=== PATIENT | male | born 1935 | race Caucasian/White ===

== ENCOUNTER 2018-07-17 07:52 | Outpatient (CLI) | payer OTHER ==
--- NOTE | 2018-07-17 09:30 | CT ---
Exam: CT abdomen pelvis with intravenous contrast. Comparison: CT chest abdomen pelvis performed 11/09/2007. Reason for exam: Right lower quadrant hernia. FINDINGS: No pleural effusion, or focal consolidation in the partially imaged lung bases. Operative changes are seen after implanted intracardiac device placement. The liver, spleen, gallbla dder, pancreas, and adrenal glands appear grossly unremarkable. Atherosclerotic disease is seen within the aorta and distal arterial vasculature. No focal small bowel dilatation or transition point. The appendix appears unremarkable. Hypodensities in the right renal parenchyma are statistically cysts. No hydronephrosis, hydroureter or nephrolithiasis in either kidney. There is circumferential bladder wall thickening with surrounding inflammatory change. Large stool burden is seen within the rectal vault. The prostate is prominent in size with parenchym al calcifications. There is a moderate stool burden seen throughout the colon. No bowel containing hernia is seen. Degenerative disease is seen throughout the lumbosacral spine with osseous demineralization. Linear lucency is seen in the right inferior acetabulum on the coronal view image number 54. Impression: 1. Circumferential bladder wall thickening can be seen with outlet obstruction and cystitis. Furthe r evaluation is recommended. 2. Large stool burden is seen throughout the colon with a large amount of stool in the rectal vault. Imaging findings are consistent with constipation. Cannot rule out impaction. Recommend follow up imaging. 3. Right renal hypodensities are statistically cysts. 4. Diffuse osseous demineralization limits evaluation of the osseous structures. Findings are consi stent with demineralized bones/osteoporosis. Further evaluation is recommended. 5. Unexpected finding/unexpected result: Lucency in the inferior right acetabulum on coronal image number 54 may represent a nondisplaced fracture versus summation. Recommend correlation with the sit e of patient's pain.
== END 2018-07-17 07:53 | disposition home or self-care (01) ==
LOC: RAD 07:52
PROVIDERS: ATTEND Family Medicine
DX: R10.31 Right lower quadrant pain (principal)
CPT/HCPCS: 36415; 82565

== ENCOUNTER 2018-07-28 12:32 | Outpatient (CLI) | payer OTHER ==
--- NOTE | 2018-07-28 13:45 | DEXA ---
EXAM: Bone densitometry. History: Osteoporosis. Findings: Evaluation of the lumbar spine reveals a total bone mineral density of 0.925 grams per centimeter squ ared with T-score of negative 2.5. Evaluation of the left hip reveals a total bone mineral density of 1.056 grams per centimeter squared with T-score of negative 0.3. Evaluation of the right hip reveals a total bone mineral density of 0.983 grams per centimeter square d with T-score of negative 0.8. FRAX: 10-year probability of major osteoporotic fracture is 7.4% and 2.7% for hip fracture. Impression: 1. Osteoporosis of the lumbar spine. 2. Normal bone mineral density of bilateral hips
== END 2018-07-28 12:33 | disposition home or self-care (01) ==
LOC: RAD 12:32
PROVIDERS: ATTEND Family Medicine
DX: M81.0 Age-related osteoporosis without current pathological fracture (principal); M79.10 Myalgia, unspecified site; M19.90 Unspecified osteoarthritis, unspecified site